=== PATIENT | male | born 1950 | race Caucasian/White ===

== ENCOUNTER 2017-10-21 07:05 | Day surgery (SDC) | payer MEDICARE, OTHER ==
[~2017-10-21 07:05] MED LIST: ACETAMINOPHEN 1,000 MG/100 ML BTL IV ONE; CEFAZOLIN 2 Gram 2 GM/50 ML BAG IVPB ONE
[2017-10-21] MEDS ORDERED: SEVOFLURANE 250 ML INH ONE (07:06)
[2017-10-21] MEDS ORDERED: HYDROCODONE/APAP 5/325MG TABLET PO ONE (07:06)
[2017-10-21] MEDS ORDERED: LIDOCAINE 2% MDV (20MG/ML) 20ML VIAL IV ONE (07:06)
[2017-10-21] MEDS ORDERED: ROPIVACAINE HCL (NAROPIN) /PF 5MG/ML 20ML VIAL IV ONE (07:06)
[2017-10-21] MEDS ORDERED: MIDAZOLAM HCL 2MG/2ML VIAL IV ONE (07:06)
[2017-10-21] MEDS ORDERED: BUPIVACAINE 0.25% W/EPI MPF 30ML VIAL IVP ONE (07:06)
[2017-10-21] MEDS ORDERED: DEXAMETHASONE 4 MG/ML 1ML VIAL IVP ONE (07:06)
[2017-10-21] MEDS ORDERED: KETOROLAC 30 MG/ML VIAL IVP ONE (07:06)
[2017-10-21] MEDS ORDERED: PROPOFOL 10 MG/ML VIAL IV ONE (07:06)
[2017-10-21] MEDS ORDERED: FENTANYL PF 100MCG/2ML VIAL IV ONE (07:06)
[2017-10-21] MEDS ORDERED: ONDANSETRON HCL IV 4 MG/2 ML VIAL IVP ONE (07:06)
--- NOTE | 2017-10-21 12:30 | Operative Note ---
DATE OF SURGERY: 10/21/2017 Surgeon: Azeem De Los Santos DO PREOPERATIVE DIAGNOSIS: Reducible left inguinal hernia. POSTOPERATIVE DIAGNOSIS: Reducible left inguinal hernia. OPERATION: Open left inguinal herniorrhaphy with mesh. Indication: The patient is a 66-year-old male who presented to the clinic with pain and bulging in his left inguinal region. On exam, he had a reducible hernia noted. We did discuss repair, risks, benefits, and alternatives were discussed. Risks include bleeding, infection, acute on chronic pain, or recurrence. He understood this fully. Thereafter, consent was signed and questions answered. PROCEDURE: The patient was taken to the operating room and placed in a supine position. General anesthesia was administered per the department of anesthesia. The patient's left inguinal region was shaved of hair and prepped and draped in the usual fashion. At this time, adequate timeout was performed. He did receive preoperative inguinal block per the department of anesthesia. He did receive preoperative antibiotics as well as DVT prophylaxis. At this time, the oblique region was anesthetized with a total of 4 mL of 0.25% Sensorcaine with epinephrine. A 4 cm oblique incision was made. This was carried down through the Fredy layer to the aponeurosis of the external oblique. A asad was made with a scalpel blade and enlarged through the superficial inguinal ring with Metzenbaum scissors. Care was taken not to injure the underlying ilioinguinal nerve or spermatic cord. At this time, superior and inferior flaps were developed and a [place] was placed on the spermatic cord. This was dissected free from the underlying direct hernia sac. The direct hernia sac was dissected free from the cord. At this time, cremasteric fibers were taken down. There was a moderate cord lipoma noted where a high ligation was done. There was no indirect hernia sac noted. At this time, the floor was imbricated in a Bassini type fashion. A left-sided ProGrip mesh was obtained. This was customized to size. This was placed in the floor of the inguinal canal. We had excellent overlap of the pubic tubercle. Sutures went to the level of pubic tubercle, inguinal aponeurosis of the external oblique, and second portion of the inguinal ligament. The lateral triangle was protected with the lateral aspect of the mesh. At this time, the aponeurosis was closed over the cord with 2-0 Vicryl, the Fredy layer was closed with 3-0 Vicryl, and skin was closed with 4-0 Vicryl. The patient tolerated the procedure well. CC: DO CHINA Koch
== END 2017-10-21 10:20 | disposition home or self-care (01) ==
LOC: SUR 07:05
PROVIDERS: ATTEND Surgery
DX: K40.90 Unilateral inguinal hernia, without obstruction or gangrene, not specified as recurrent (principal); G47.33 Obstructive sleep apnea (adult) (pediatric); N40.0 Benign prostatic hyperplasia without lower urinary tract symptoms
CPT/HCPCS: 49505; 00830; J1885; J2405; J3010; J0690; J2795

== ENCOUNTER 2018-08-21 11:39 | Day surgery (SDC) | payer MEDICARE, OTHER ==
[2018-08-21] MEDS ORDERED: LIDOCAINE 2% MDV (20MG/ML) 20ML VIAL IV ONE (11:40)
[2018-08-21] MEDS ORDERED: PROPOFOL 10 MG/ML VIAL IV ONE (11:40)
--- NOTE | 2018-08-22 08:00 | Operative Note ---
OPERATION: Surveillance COLONOSCOPY. PREOPERATIVE DIAGNOSIS: History of polyps. POSTOPERATIVE DIAGNOSIS: Sigmoid diverticulosis. ESTIMATED BLOOD LOSS: None. SPECIMENS: None. COMPLICATIONS: None apparent. PREPARATION QUALITY: Good. PROCEDURE: After informed consent was obtained from the patient, he was placed in the left lateral decubitus position in the endoscopy suite, sedated and monitored by the department of anesthesia. Digital rectal exam was unremarkable. A well-lubricated [id number] colonoscope was inserted into the rectum and advanced to the cecum. Preparation quality was good. The cecum and cecal bulb were entered several times. The cecum, ileocecal valve, appendiceal orifice, ascending colon, transverse colon, and descending colon were unremarkable. The sigmoid colon demonstrated moderate diverticular changes but no polyps or inflammation was seen. The rectum was unremarkable in forward and J-turn views. The endoscope was straightened, the rectal ampulla deflated, and the endoscope was removed. RECOMMENDATIONS: I would suggest the patient follow a high-fiber diet and use a fiber supplement. I would suggest a repeat exam in 5 years. As always, thank you for allowing me to participate in the healthcare of your patients. CC: DO CHINA Koch
== END 2018-08-21 13:06 | disposition home or self-care (01) ==
LOC: HOP 11:39
PROVIDERS: ATTEND Internal Medicine Gastroenterology
DX: Z12.11 Encounter for screening for malignant neoplasm of colon (principal); K57.30 Diverticulosis of large intestine without perforation or abscess without bleeding; Z86.010 Personal history of colon polyps
CPT/HCPCS: 00812; G0105